=== PATIENT | female | born 1975 | race Caucasian/White ===

== ENCOUNTER 2016-10-17 15:21 | Emergency (ER) | payer OTHER ==
[~2016-10-17] VITALS: Ht 175.3 cm; Wt 120.4 kg
[~2016-10-17 15:21] MED LIST changes: -HYDR-3702 PO; -LORA1TAB PO; -ONDA4TAB8 PO
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
[2016-10-17] MEDS ORDERED: LORA1TAB PO (15:51)
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
[2016-10-17 16:08] LABS: BASOPHILS % (AUTO) 0 % (0-2); EOSINOPHILS # (AUTO) 0.2 10^3uL; EOSINOPHILS % (AUTO) 1 % (0-4); MEAN CORPUSCULAR HEMOGLOBIN 30.3 PG (26.0-34.0); MEAN CORPUSCULAR HGB CONC 33.9 g/dL (31.0-37.0); MEAN CORPUSCULAR VOLUME 90 FL (80-100); MEAN PLATELET VOLUME 9.6 FL (6.0-9.5); MONOCYTES # (AUTO) 0.9 X10^3; MONOCYTES % (AUTO) 8 % (3-11); NEUTROPHILS # (AUTO) 6.6 X10^3; NEUTROPHILS % (AUTO) 56 % (51-67); PLATELET COUNT 329 10^3uL (150-450); WHITE BLOOD COUNT 11.77 10^3uL (4.0-11.0)
[2016-10-17] MEDS ORDERED: HYDROmorphone 1 MG/ML (DILAUDID) SYRINGE IV ONE (16:15)
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
[2016-10-17 16:22] LABS: ALBUMIN 4.2 g/dL (3.4-5.0); ALKALINE PHOSPHATASE 82 U/L (38-126); ANION GAP 14.7 MEQ/L (3-15); BUN/CREATININE RATIO 25 (10-20); CALCULATED IONIZED CALCIUM 4.1 mg/dL (3.8-4.6); TOTAL PROTEIN 7.2 g/dL (6.4-8.5)
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
[2016-10-17] MEDS ORDERED: HYDROmorphone 1 MG/ML (DILAUDID) SYRINGE IM ONE (16:35)
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
--- NOTE | 2016-10-17 17:19 | Diagnostic Imaging Report ---
INDICATION: Shortness of breath. Portable chest at 4:32 PM FINDINGS: Heart size and pulmonary vascularity are normal. Lungs are clear. There are no effusions or pneumothoraces. IMPRESSION: Negative chest. Dictated by: Dictated on workstation # [id number]
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
--- NOTE | 2016-10-17 17:24 | Diagnostic Imaging Report ---
INDICATION: Pelvic pain. FINDINGS: AP view of the pelvis shows no fracture or dislocation. IMPRESSION: Negative pelvis. Dictated by: Dictated on workstation # [id number]
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
--- NOTE | 2016-10-17 19:07 | NUR ---
REPORT TAKEN FROM [facility] AND ACCEPTED CARE OF PT
--- NOTE | 2016-10-17 19:14 | NUR ---
REPORT GIVEN & CARE TSF TO Maday GRESHAM RN. CL
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
[2016-10-17 19:35] LABS: BILIRUBIN,URINE Negative (Negative); COLOR,URINE Yellow; GLUCOSE, URINE (UA) Negative (Negative); LEUKOCYTE ESTERASE ,URINE Trace (Negative); PH,URINE 5.5 (5.0 - 8.0); UROBILINOGEN,URINE 0.2 mg/dL (0.2-1.0)
[2016-10-17 19:37] LABS: CLARITY,URINE Slightly Cloudy
[2016-10-17 19:38] LABS: RBC,URINE None Seen /HPF; URINE CENTRIFUGED VOLUME 12 mL
[2016-10-17] MEDS ORDERED: HYDR-3702 PO (19:49)
[2016-10-17] MEDS ORDERED: ONDA4TAB8 PO (19:49)
[2016-10-17 20:20] VITALS: BP 126/79
== END 2016-10-17 20:25 | disposition home or self-care (01) ==
LOC: ED 15:23
DX: S40.012A Contusion of left shoulder, initial encounter (principal); S70.02XA Contusion of left hip, initial encounter; S50.812A Abrasion of left forearm, initial encounter; R06.02 Shortness of breath; G89.11 Acute pain due to trauma; M25.552 Pain in left hip; M25.512 Pain in left shoulder; M54.2 Cervicalgia; M79.1 Myalgia; R19.09 Other intra-abdominal and pelvic swelling, mass and lump; V43.52XA Car driver injured in collision with other type car in traffic accident, initial encounter; Y92.488 Other paved roadways as the place of occurrence of the external cause; Y93.89 Activity, other specified
CPT/HCPCS: 36415; 70450; 71010; 72125; 72131; 73030; 73502; 74177; 80053; 80320; 81003; 81015; 84703; 85025; 87088; 96372; 96374; 99285; J1170; Q9967; 72170; 99284

== ENCOUNTER → 2016-10-17 | Outpatient (CLI) | payer OTHER ==
[~2016-10-17] MED LIST: ATOR40TA59 PO; AZIT250T81 PO; HYDR-3702 PO; KETO10TA PO; LORA1TAB PO; LSRT50T PO; METH4TAB27 PO; ONDA4TAB8 PO
== END ==
LOC: EMS 15:18
PROVIDERS: ATTEND Family Medicine
DX: M54.2 Cervicalgia (principal); M25.512 Pain in left shoulder; M79.602 Pain in left arm; M25.552 Pain in left hip; M54.5 Low back pain; V43.52XA Car driver injured in collision with other type car in traffic accident, initial encounter; Y92.414 Local residential or business street as the place of occurrence of the external cause